=== PATIENT | female | born 1970 | race Caucasian/White ===

== ENCOUNTER 2019-10-02 19:05 | Day surgery (SDC) | payer OTHER ==
[2019-10-02] MEDS ORDERED: GLUCAGON,HUMAN RECOMB 1 MG INJ SUBCUT ONE (19:23)
[2019-10-02] MEDS ORDERED: GLUCAGON,HUMAN RECOMB 1 MG INJ IM STA (19:29)
[2019-10-02 20:23] LABS: ABSOLUTE BASOPHILS # (AUTO) 0.1 10^3/uL (0.0-0.2); ABSOLUTE EOSINOPHILS # (AUTO) 0.2 10^3/uL (0.0-0.6); ABSOLUTE LYMPHOCYTES (AUTO) 3.2 10^3/uL (0.5-4.7); ABSOLUTE MONOCYTES (AUTO) 0.8 10^3/uL (0.1-1.4); ABSOLUTE NEUT (AUTO) 7.2 10^3/uL (1.7-8.2); BASOPHILS % (AUTO) 0.9 % (0-2); EOSINOPHILS % (AUTO) 1.9 % (0-6); HEMATOCRIT 39.8 % (36.0-47.0); HEMOGLOBIN 13.8 g/dL (12.0-15.5); LYMPHOCYTES % (AUTO) 27.7 % (13-45); MEAN CORPUSCULAR HEMOGLOBIN 30.2 pg (27.0-33.4); MEAN CORPUSCULAR HGB CONC 34.7 g/dL (32.0-36.0); MEAN CORPUSCULAR VOLUME 87 fl (80-97); MONOCYTES % (AUTO) 7.3 % (3-13); PLATELET COUNT 270 10^3/uL (150-450); RED BLOOD COUNT 4.57 10^6/uL (3.72-5.28); RED CELL DISTRIBUTION WIDTH 13.4 % (11.5-14.0); SEGMENTED NEUTROPHILS % (AUTO) 62.2 % (42-78); TOTAL CELLS COUNTED % (AUTO) 100 %; WHITE BLOOD COUNT 11.6 10^3/uL (4.0-10.5)
--- NOTE | 2019-10-02 20:28 | RADIOLOGY REPORT (SQ) ---
EXAM DESCRIPTION: X-ray, two views of the neck CLINICAL HISTORY: 48 years Female, food bolus stuck from last night's dinner COMPARISON: None. FINDINGS: The airway is patent. The epiglottis is normal. The prevertebral soft tissues are normal. No radiopaque foreign body is identified. 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 No acute fracture is seen. Lung apices are clear. IMPRESSION: No radiopaque foreign body is seen in the esophagus or pharynx.
[2019-10-02 20:41] LABS: ALKALINE PHOSPHATASE 77 U/L (38-126); ANION GAP 9 (5-19); ASPARTATE AMINO TRANSFERASE 23 U/L (14-36); BILIRUBIN,DIRECT 0.2 mg/dL (0.0-0.4); BILIRUBIN,TOTAL 4.4 mg/dL (0.2-1.3); BLOOD UREA NITROGEN 13 mg/dL (7-20); CALCIUM 9.8 mg/dL (8.4-10.2); CARBON DIOXIDE 28 mmol/L (22-30); CHLORIDE 104 mmol/L (98-107); GLUCOSE 119 mg/dL (75-110); POTASSIUM 3.8 mmol/L (3.6-5.0); TOTAL PROTEIN 8.6 g/dL (6.3-8.2)
--- NOTE | 2019-10-02 22:20 | ER Document Report ---
ED General - General Chief Complaint: Foreign Body Stated Complaint: FOREIGN OBJECT IN THROAT Time Seen by Provider: 10/02/19 19:20 Notes: 48-year-old female presents emergency department complaining of food stuck in her throat. States that at 7 PM last evening she was eating a frozen meal that had rice and steak noodles, states she took 2 large bite did not fully chew the steak and then get stuck in her throat. She states since then she has been unable to tolerate any liquid. States she is even trying to swallow tiny little sips of water and they come up within 30 seconds to a minute. Patient has tried drinking soda and that has not made a difference either. Patient has had to have esophageal dilations twice in the past. States she has a history of strictures, last dilation was in 2016. Patient is by visiting from [place]. Does not know why she has strictures in her throat. Currently patient is complaining of some pain in her throat anterior chest as well as vomiting all liquids. Denies any other symptoms. Denies any prior medical history, denies any complications with surgeries in the past. - Related Data Allergies/Adverse Reactions: No Known Allergies Allergy (Unverified 10/02/19 19:17) Past Medical History - General Information source: Patient - Social History Smoking Status: Never Smoker Chew tobacco use (# tins/day): No Frequency of alcohol use: Rare Drug Abuse: None Family History: Reviewed & Not Pertinent Review of Systems - Review of Systems Cardiovascular: See HPI Gastrointestinal: See HPI -: Yes All other systems reviewed and negative Physical Exam - Vital signs Vitals: Temp Pulse Resp BP Pulse Ox 99.4 F 84 18 145/114 H 100 10/02/19 19:14 10/02/19 19:14 10/02/19 19:14 10/02/19 19:14 10/02/19 19:14 Interpretation: Hypertensive - Notes Notes: GENERAL: Alert, interacts well. No acute distress. HEAD: Normocephalic, atraumatic EYES: Pupils equal, round and reactive to light, extraocular movements intact. ENT: Oral mucosa moist, tongue midline. Tolerating her own secretions well, not drooling. NECK: Full range of motion, supple, trachea midline. LUNGS: Clear to auscultation bilaterally, no wheezes, rales or rhonchi, no respiratory distress. HEART: Regular rate and rhythm, no murmurs, gallops, rubs. ABDOMEN: Soft, nontender, nondistended, bowel sounds present in all 4 quadrants. EXTREMITIES: Moves all 4 extremities spontaneously. NEUROLOGICAL: Alert and oriented x3, normal speech. PSYCH: Normal mood, normal affect. SKIN: Warm, Dry, normal turgor, no rashes or lesions noted. Course - Re-evaluation Re-evalutation: 10/02/19 22:55 CBC shows slight leukocytosis 11.6, CMP grossly unremarkable, there is a slightly elevated bilirubin of 4.4 however this is a outlier. No other reason to suspect any sort of liver disease. Troponin is negative. EKG is nonischemic. Soft tissue neck x-ray does not show any radiopaque foreign body. Patient was trialed on carbonated beverages and they did not work, also given glucagon which made her vomit but did not resolve the impaction. Patient tried another sip of water and it came directly back up. Discussed with Dr. Otoole is going to take the patient to the OR to remove the food bolus. Patient will be then discharged home. 10/03/19 05:[address] Otoole's OR note, food bolus was removed, he discussed aftercare with patient's friend, patient was discharged from post-op recovery. - Vital Signs Vital signs: Temp Pulse Resp BP Pulse Ox 98.9 F 81 16 129/79 H 98 10/03/19 03:30 10/03/19 03:30 10/03/19 03:30 10/03/19 03:30 10/03/19 03:30 - Laboratory Result Diagrams: 10/02/19 20:04 10/02/19 20:04 Laboratory results interpreted by me: 10/02/19 10/02/19 10/02/19 19:59 20:04 20:04 WBC 11.6 H Glucose 119 H POC Glucose 117 H Total Bilirubin 4.4 H ALT 39 H Total Protein 8.6 H - EKG Interpretation by Me Additional EKG results interpreted by me: 10/02/19 22:20 EKG shows sinus rhythm at a rate of 77, normal axis, normal intervals, no ST segment elevations or depressions, T wave inversions are noted in lead III, V2, V3 and flattening in V4 per my interpretation. Discharge - Discharge Clinical Impression: Esophageal obstruction due to food impaction Condition: Stable Disposition: HOME, SELF-CARE
[2019-10-02] MEDS ORDERED: RINGERS SOLUTION,LACTATED 1,000 ML IV ONE (23:54)
[2019-10-03] MEDS ORDERED: PROPOFOL INJ 200 MG/20 ML VIAL IV ONE (01:06)
--- NOTE | 2019-10-03 02:03 | Operative Report ---
Operative Report DATE OF SURGERY: 10/03/19 PREOPERATIVE DIAGNOSIS: 1. Retained food bolus in esophagus. 2. History of G ERD, esophageal stricture requiring dilatation. 3. Obesity POSTOPERATIVE DIAGNOSIS: Same with mild gastritis OPERATION: 1. Esophagogastroduodenoscopy. 2. Endoscopic removal of distal esophageal food bolus SURGEON: SKIP TURNER ANESTHESIA: GA TISSUE REMOVED OR ALTERED: Food bolus COMPLICATIONS: None ESTIMATED BLOOD LOSS: Scant INTRAOPERATIVE FINDINGS: See below PROCEDURE: Patient was brought from the emergency department to the main operating room where general anesthesia was induced. Oral mouthpiece inserted. Surgical plan surgical timeout were conducted. The flexible upper endoscope was advanced through the oropharynx, down the esophagus to approximately 30 cm. Between 30 and 35 cm there were food fragments consistent with a retained chicken versus pork. Using a Downing net and multiple meenakshi grasper, the food bolus was broken up. Fragments were brought out through the oropharynx with multiple passes of the esophagoscope. Eventually we got the mass broken up such that the remaining pieces were pushed through into the stomach. The scope was advanced to the stomach into the first and second portions of the duodenum. There was no evidence of stricture, tumor polyp or bleeding. There was some mild gastritis. No biopsy taken. The scope was retroflexed in the stomach. There was no evidence of significant bleeding into the stomach from the esophagus. We brought the scope back through the esophagus in a prograde and retrograde fashion, examining the distal esophagus. There was mild esophagitis but no evidence of tumor or significant stricture. There was minimal redundant esophageal fold with inflammation. No evidence of ulceration. Photos taken. Scope was brought back through the oropharynx, and removed from the patient's [facility]. She tolerated procedure well Impression: Successful endoscopic removal of distal esophageal food bolus secondary to GERD Recommendations 1. Clear liquids for 24 hours 2. GERD lifestyle modifications 3. Consider antacid therapy 4. Follow-up with gas burner operator on a as needed basis.
[2019-10-03 03:33] VITALS: BP 129/79
--- NOTE | 2019-10-03 07:33 | EKG REPORT ---
SEVERITY:- BORDERLINE ECG - SINUS RHYTHM BORDERLINE T ABNORMALITIES, ANTERIOR LEADS : Confirmed by: Pranay Aguilera MD 03-Oct-2019 07:32:29
--- NOTE | 2019-10-03 10:27 | ER Document Report ---
ED Medical Screen (RME) - General Chief Complaint: Foreign Body Stated Complaint: FOREIGN OBJECT IN THROAT Time Seen by Provider: 10/02/19 19:20 - HPI Notes: 10/03/19 10:50 patient seen on 10/02/2019 at 1930 48-year-old female with a history of esophageal stricture with dilation done in 2017 in 2011 presents to the emergency room for feeling like she has a food bolus stuck in her throat after eating steak, rice and noodles last night. Patient states usually when this happens she can get the bolus down but has not been able to do so. Patient states she is not having any difficulty breathing or speaking, does feel some anxiety about not being able to have the bolus go down. Denies any chest pain or shortness of breath. Speaking without any difficulty. Denies any drooling. Denies any fevers or chills. I have greeted and performed a rapid initial assessment of this patient. A comprehensive ED assessment and evaluation of the patient, analysis of test results and completion of the medical decision making process will be conducted by additional ED providers. PHYSICAL EXAMINATION: GENERAL: Well-appearing, well-nourished and in no acute distress. HEAD: Atraumatic, normocephalic. EYES: Pupils equal round extraocular movements intact, conjunctiva are normal. ENT: Uvula midline NECK: Normal range of motion CV: s1, s2 regular LUNGS: No respiratory distress 10/03/19 10:58 - Related Data Allergies/Adverse Reactions: No Known Allergies Allergy (Unverified 10/02/19 19:17) Past Medical History - Social History Chew tobacco use (# tins/day): No Frequency of alcohol use: Rare Drug Abuse: None Physical Exam - Vital signs Vitals: Temp Pulse Resp BP Pulse Ox 99.4 F 84 18 145/114 H 100 10/02/19 19:14 10/02/19 19:14 10/02/19 19:14 10/02/19 19:14 10/02/19 19:14 Course - Vital Signs Vital signs: Temp Pulse Resp BP Pulse Ox 98.9 F 81 16 129/79 H 98 10/03/19 03:30 10/03/19 03:30 10/03/19 03:30 10/03/19 03:30 10/03/19 03:30 - Laboratory Result Diagrams: 10/02/19 20:04 10/02/19 20:04 Laboratory results interpreted by me: 10/02/19 10/02/19 10/02/19 19:59 20:04 20:04 WBC 11.6 H Glucose 119 H POC Glucose 117 H Total Bilirubin 4.4 H ALT 39 H Total Protein 8.6 H Doctor's Discharge - Discharge Clinical Impression: Esophageal obstruction due to food impaction Condition: Stable Disposition: HOME, SELF-CARE
== END 2019-10-03 ==
LOC: ER 19:05 → OROUT 10-03 01:20
PROVIDERS: ATTEND Surgery
DX: T18.128A Food in esophagus causing other injury, initial encounter (principal); X58.XXXA Exposure to other specified factors, initial encounter; K22.2 Esophageal obstruction; E66.9 Obesity, unspecified; Z03.818 Encounter for observation for suspected exposure to other biological agents ruled out; D72.829 Elevated white blood cell count, unspecified
CPT/HCPCS: 93005; 99284; 96372; 96360; 43247; 36415; 82962; 84703; 85025; 87635; 81025; 80053; 84484; 70360; 93010; 00731; 99140; J1610; J7120; J2704; C9803; 731